=== PATIENT | female | born 1950 | race African-American/Black ===

== ENCOUNTER 2019-07-04 11:39 | Outpatient (CLI) | payer MEDICARE ==
--- NOTE | 2019-07-04 12:00 | RAD ---
TWO VIEWS RIGHT HIP: HISTORY: Pain. COMPARISON: None. FINDINGS: Severe loss of joint space height. There is sclerosis and subchondral cyst formation. The contour of the femoral head is slightly irregular along the superior lateral aspect, best demonstrated on the frogleg lateral view. Findings are presumed to be degenerative change. IF there is concern for fractu re or avascular necrosis, consider MRI. IMPRESSION: Degenerative changes and findings as detailed above. Transcribed Date/Time: 07/04/2019 12:06 PM
--- NOTE | 2019-07-04 12:00 | RAD ---
XR Knee Rt 4 View STANDARD HISTORY: Right knee pain FINDINGS: Marked degenerative changes are present. No fracture or dislocation is identified.
== END 2019-07-04 11:40 | disposition home or self-care (01) ==
LOC: BICRAD 11:39
PROVIDERS: ATTEND Family Medicine
DX: M25.561 Pain in right knee (principal); M25.551 Pain in right hip; M16.11 Unilateral primary osteoarthritis, right hip
CPT/HCPCS: 36415; 80053; 80061; 81001; 85025

== ENCOUNTER 2022-04-20 12:13 | Inpatient (IN) | payer MEDICAID, MEDICARE, OTHER ==
[~2022-04-20 12:13] MED LIST: Iopamidol-370 76% 500 ML 1 ML ONE
[2022-04-20 13:33] LABS: Bilirubin 1+ (Negative); Blood, Urine Negative (Negative); Clarity Clear (Clear); Glucose, Urine (Dipstick) Normal (Negative); Ketone, Urine Negative (Negative); Leukocyte 25 Leu/uL (Negative); Nitrite Negative (Negative); Protein, Urine (Dipstick) 70 mg/dL (Neg-Trace); Specific Gravity, Urine 1.021 (1.002-1.036); Squamous Epithelial 0-3 HPF (0-3); Urobilinogen 12 mg/dL (Less than 2)
[2022-04-20 13:41] LABS: Hemoglobin 11.5 g/dL (12.0-16.0); Mean Corpuscular HGB CONC 29.5 g/dL (32.0-36.0); Mean Platelet Volume 7.3 fL (7.4-10.4); Platelet Count 257 thou/uL (130-400); Red Blood Cell (RBC) Count 4.41 mill/uL (4.20-5.40); White Blood Cell (WBC) Count 4.3 thou/uL (4.8-10.8)
[2022-04-20 13:45] LABS: ALT (SGPT) 39 U/L (8-55); AST (SGOT) 49 U/L (5-34); Albumin 3.6 g/dL (3.4-4.8); Alkaline Phosphatase 179 U/L (40-110); Anion Gap 17 mmol/L (10-20); BUN (Urea Nitrogen) 34 mg/dL (9.8-20.1); Bilirubin, Total 6.3 mg/dL (0.2-1.2); Calc. Creatinine Clearance 0 mL/min (70-130); Calcium 9.5 mg/dL (7.8-10.44); Carbon Dioxide 25 mmol/L (23-31); Chloride 97 mmol/L (98-107); Estimated GFR 46; Globulin 4.2 g/dL (2.4-3.5); Glucose 105 mg/dL (83-110); Lipase 13 U/L (8-78); Magnesium 1.9 mg/dL (1.6-2.6); Protein, Total 7.8 g/dL (5.8-8.1); Sodium 135 mmol/L (136-145)
[2022-04-20 13:48] LABS: Bacteria/HPF 1+ HPF (None Seen); RBC/HPF 0-3 HPF (0-3)
[2022-04-20] MEDS ORDERED: Morphine 4 MG/ML VIAL ONE (13:50)
[2022-04-20] MEDS ORDERED: Furosemide 40 MG/4 ML VIAL ONE (13:51)
[2022-04-20] MEDS ORDERED: Ondansetron PF 4 MG/2 ML Vial ONE (13:51)
[2022-04-20 13:54] LABS: Anisocytosis SLIGHT = 6-15 cells (100X) (0-5/hpf); Eosinophils 5 % (0-10); Hypochromia SLIGHT = 6-15 cells (100X) (0-5/hpf); Lymphocytes 23 % (21-51); MDiff Complete? YES; Monocytes 11 % (0-10); Neutrophil 60 % (42-75); Ovalocytes SLIGHT = 2-5 cells (100X) (0-1/hpf); Platelet Morphology Comment Appears Adequate; Polychromasia SLIGHT = 2-3 cells (100X) (0-2/hpf); Reactive Lymphocytes 1 % (0-10)
[2022-04-20] MEDS ORDERED: Magnesium 2 GM/50 ML BAG (IN WATER) ONE (13:55)
[2022-04-20] MEDS ORDERED: Meropenem 1 GM in Sodium Chloride 0.9% 100 ML IVPB SCH (17:15)
[2022-04-20] MEDS ORDERED: Morphine 4 MG/ML VIAL SLOW IVP PRN (17:29)
[2022-04-20] MEDS ORDERED: Ondansetron PF 4 MG/2 ML Vial IVP PRN (17:41)
[2022-04-20] MEDS ORDERED: Ondansetron ODT 4 MG TAB PO PRN (17:41)
[2022-04-20] MEDS: metroNIDAZOLE 500 MG in Premix Bag 1 BAG IVPB SCH (21:03)
[2022-04-21 04:49] LABS: ALT (SGPT) 36 U/L (8-55); AST (SGOT) 39 U/L (5-34); Albumin 3.2 g/dL (3.4-4.8); Alkaline Phosphatase 151 U/L (40-110); Anion Gap 14 mmol/L (10-20); BUN (Urea Nitrogen) 34 mg/dL (9.8-20.1); Bilirubin, Total 6.1 mg/dL (0.2-1.2); Calc. Creatinine Clearance 84 mL/min (70-130); Calcium 9.1 mg/dL (7.8-10.44); Carbon Dioxide 28 mmol/L (23-31); Chloride 97 mmol/L (98-107); Estimated GFR 52; Globulin 3.6 g/dL (2.4-3.5); Glucose 80 mg/dL (83-110); Potassium 3.1 mmol/L (3.5-5.1); Protein, Total 6.8 g/dL (5.8-8.1); Sodium 136 mmol/L (136-145)
[2022-04-21 05:06] LABS: Hemoglobin 10.2 g/dL (12.0-16.0); Mean Corpuscular HGB CONC 30.1 g/dL (32.0-36.0); Mean Corpuscular Hemoglobin 25.6 pg (27.0-31.0); Mean Corpuscular Volume 85.1 fl (78.0-98.0); Mean Platelet Volume 6.9 fL (7.4-10.4); Platelet Count 266 thou/uL (130-400); RBC Distribution Width 15.7 % (11.5-14.5); Red Blood Cell (RBC) Count 3.97 mill/uL (4.20-5.40); White Blood Cell (WBC) Count 4.3 thou/uL (4.8-10.8)
[2022-04-21 05:07] LABS: Anisocytosis SLIGHT = 6-15 cells (100X) (0-5/hpf); Band 2 % (5-11); Eosinophils 2 % (0-10); Hypochromia SLIGHT = 6-15 cells (100X) (0-5/hpf); Lymphocytes 33 % (21-51); MDiff Complete? YES; Monocytes 11 % (0-10); Neutrophil 52 % (42-75); Platelet Morphology Comment Appears Adequate; Polychromasia SLIGHT = 2-3 cells (100X) (0-2/hpf); Target Cells SLIGHT = 2-5 cells (100X) (0-1/hpf)
[2022-04-21] MEDS: Furosemide 20 MG/2 ML VIAL SLOW IVP SCH ×2 (06:29→13:35)
[2022-04-21] MEDS: metroNIDAZOLE 500 MG in Premix Bag 1 BAG IVPB SCH ×3 (06:29→20:13)
[2022-04-21] MEDS: cefTRIAXone\\ROCEPHIN 1 GM in Sodium Chloride 0.9% 100 ML IVPB SCH ×2 (06:36→18:11)
[2022-04-21] MEDS ORDERED: Spironolactone 25 MG TAB PO SCH (08:00)
[2022-04-21] MEDS: Carvedilol 3.125 MG TAB PO SCH ×2 (08:44→16:37)
[2022-04-21] MEDS: Enoxaparin Sodium 120 MG/0.8 ML SYRINGE SC SCH ×2 (08:44→20:12)
[2022-04-21] MEDS ORDERED: Communication Order-Pharmacy FS SCH ×2 (09:00)
[2022-04-22 04:30] LABS: Anion Gap 13 mmol/L (10-20); BUN (Urea Nitrogen) 36 mg/dL (9.8-20.1); Calc. Creatinine Clearance 91 mL/min (70-130); Calcium 9.1 mg/dL (7.8-10.44); Carbon Dioxide 29 mmol/L (23-31); Chloride 97 mmol/L (98-107); Estimated GFR 57; Glucose 87 mg/dL (83-110); Potassium 3.1 mmol/L (3.5-5.1); Sodium 136 mmol/L (136-145)
[2022-04-22 05:09] LABS: Band 1 % (5-11); Eosinophils 6 % (0-10); Hemoglobin 10.3 g/dL (12.0-16.0); Lymphocytes 40 % (21-51); MDiff Complete? YES; Mean Corpuscular HGB CONC 30.9 g/dL (32.0-36.0); Mean Corpuscular Hemoglobin 26.6 pg (27.0-31.0); Mean Corpuscular Volume 85.8 fl (78.0-98.0); Monocytes 14 % (0-10); Neutrophil 38 % (42-75); Platelet Count 260 thou/uL (130-400); RBC Distribution Width 15.5 % (11.5-14.5); Red Blood Cell (RBC) Count 3.89 mill/uL (4.20-5.40)
[2022-04-22] MEDS: metroNIDAZOLE 500 MG in Premix Bag 1 BAG IVPB SCH ×2 (06:27→14:30)
[2022-04-22] MEDS: Furosemide 20 MG/2 ML VIAL SLOW IVP SCH ×2 (06:27→14:30)
[2022-04-22] MEDS ORDERED: Lidocaine 1% PF 5 ML VIAL ONE (06:52)
[2022-04-22] MEDS ORDERED: Nitroglycerin 100MG/250ML BOT 250 ML ONE (06:52)
[2022-04-22] MEDS ORDERED: Heparin 10,000 UNITS/ 10 ML VIAL ONE (06:52)
[2022-04-22] MEDS ORDERED: Verapamil 5 MG/2 ML VIAL ONE (06:52)
[2022-04-22] MEDS ORDERED: Midazolam HCl 2 mg/2 ml Vial ONE (08:44)
[2022-04-22] MEDS ORDERED: Fentanyl 100 MCG/2 ML VIAL ONE (08:45)
[2022-04-22] MEDS: Spironolactone 25 MG TAB PO SCH (09:21)
[2022-04-22] MEDS: Carvedilol 6.25 MG TAB PO SCH ×2 (09:21→17:26)
[2022-04-22] MEDS ORDERED: Iopamidol 370 76% 100 ML VIAL ONE (14:34)
[2022-04-22] MEDS ORDERED: Iopamidol 370 76% 50 ML VIAL FS ONE (14:34)
[2022-04-22] MEDS: cefTRIAXone\\ROCEPHIN 1 GM in Sodium Chloride 0.9% 100 ML IVPB SCH (17:26)
[2022-04-23 04:34] LABS: Anion Gap 13 mmol/L (10-20); BUN (Urea Nitrogen) 31 mg/dL (9.8-20.1); Calc. Creatinine Clearance 96 mL/min (70-130); Calcium 9.1 mg/dL (7.8-10.44); Carbon Dioxide 31 mmol/L (23-31); Chloride 96 mmol/L (98-107); Estimated GFR 60; Glucose 118 mg/dL (83-110); Sodium 137 mmol/L (136-145)
[2022-04-23 04:53] LABS: Hemoglobin 10.9 g/dL (12.0-16.0); MDiff Complete? YES; Mean Corpuscular Hemoglobin 26.3 pg (27.0-31.0); Mean Corpuscular Volume 87.5 fl (78.0-98.0); Mean Platelet Volume 6.9 fL (7.4-10.4); Platelet Count 290 thou/uL (130-400); RBC Distribution Width 15.5 % (11.5-14.5); Red Blood Cell (RBC) Count 4.13 mill/uL (4.20-5.40); White Blood Cell (WBC) Count 3.7 thou/uL (4.8-10.8)
[2022-04-23 04:54] LABS: Anisocytosis SLIGHT = 6-15 cells (100X) (0-5/hpf); Band 1 % (5-11); Eosinophils 2 % (0-10); Lymphocytes 30 % (21-51); Monocytes 18 % (0-10); Neutrophil 49 % (42-75)
[2022-04-23] MEDS: Furosemide 20 MG/2 ML VIAL SLOW IVP SCH ×2 (05:40→14:00)
[2022-04-23] MEDS: Carvedilol 6.25 MG TAB PO SCH ×2 (08:29→16:36)
[2022-04-23] MEDS: Apixaban 5 MG TAB PO SCH ×2 (08:29→20:43)
[2022-04-23] MEDS: Spironolactone 25 MG TAB PO SCH (08:30)
[2022-04-23] MEDS ORDERED: Potassium Chloride 20 MEQ TAB PO SCH (16:00)
[2022-04-23] MEDS: Sacubitril 49 MG/Valsartan 51 MG TABLET PO SCH (20:43)
[2022-04-24 04:58] LABS: ALT (SGPT) 36 U/L (8-55); AST (SGOT) 50 U/L (5-34); Albumin 3.1 g/dL (3.4-4.8); Alkaline Phosphatase 152 U/L (40-110); Anion Gap 14 mmol/L (10-20); BUN (Urea Nitrogen) 21 mg/dL (9.8-20.1); Bilirubin, Direct 3.7 mg/dL (0.1-0.3); Bilirubin, Total 5.6 mg/dL (0.2-1.2); Calc. Creatinine Clearance 114 mL/min (70-130); Carbon Dioxide 33 mmol/L (23-31); Chloride 95 mmol/L (98-107); Estimated GFR 74; Glucose 97 mg/dL (83-110); Magnesium 1.5 mg/dL (1.6-2.6); Potassium 3.5 mmol/L (3.5-5.1); Sodium 138 mmol/L (136-145)
[2022-04-24 05:06] LABS: Eosinophils 6 % (0-10); Hemoglobin 10.6 g/dL (12.0-16.0); Lymphocytes 42 % (21-51); MDiff Complete? YES; Mean Corpuscular HGB CONC 29.5 g/dL (32.0-36.0); Mean Corpuscular Hemoglobin 25.9 pg (27.0-31.0); Mean Corpuscular Volume 87.5 fl (78.0-98.0); Mean Platelet Volume 6.8 fL (7.4-10.4); Monocytes 22 % (0-10); Neutrophil 30 % (42-75); Platelet Count 311 thou/uL (130-400); RBC Distribution Width 15.7 % (11.5-14.5); Red Blood Cell (RBC) Count 4.12 mill/uL (4.20-5.40); White Blood Cell (WBC) Count 3.6 thou/uL (4.8-10.8)
[2022-04-24] MEDS: Furosemide 20 MG/2 ML VIAL SLOW IVP SCH (06:22)
[2022-04-24 07:36] VITALS: TEMP 97.5
[2022-04-24] MEDS ORDERED: Magnesium 2 GM/50 ML(in water) 2 GM in Premix Bag 1 BAG IVPB SCH (08:30)
[2022-04-24] MEDS: Apixaban 5 MG TAB PO SCH (08:37)
[2022-04-24] MEDS: Spironolactone 25 MG TAB PO SCH (08:37)
[2022-04-24] MEDS: Carvedilol 6.25 MG TAB PO SCH (08:37)
[2022-04-24] MEDS: Sacubitril 49 MG/Valsartan 51 MG TABLET PO SCH (08:38)
[2022-04-24 10:40] VITALS: BP 114/70
== END 2022-04-24 10:45 | disposition home or self-care (01) | DRG 286 ==
LOC: ERS 12:13 → 2NO 16:46
PROVIDERS: ADMIT Internal Medicine; ATTEND Hospitalist
PROC: 4A023N7 Measurement of Cardiac Sampling and Pressure, Left Heart, Percutaneous Approach (ICD-10-PCS; principal; 2022-04-22)
PROC: B2111ZZ Fluoroscopy of Multiple Coronary Arteries using Low Osmolar Contrast (ICD-10-PCS; 2022-04-22)
DX: I11.0 Hypertensive heart disease with heart failure (principal); I50.23 Acute on chronic systolic (congestive) heart failure; K80.10 Calculus of gallbladder with chronic cholecystitis without obstruction; N17.9 Acute kidney failure, unspecified; N39.0 Urinary tract infection, site not specified; I48.19 Other persistent atrial fibrillation; D64.9 Anemia, unspecified; I42.8 Other cardiomyopathies; E78.5 Hyperlipidemia, unspecified; Z96.652 Presence of left artificial knee joint; E80.6 Other disorders of bilirubin metabolism; K76.1 Chronic passive congestion of liver; I08.1 Rheumatic disorders of both mitral and tricuspid valves; E66.01 Morbid (severe) obesity due to excess calories; E87.6 Hypokalemia; Z20.822 Contact with and (suspected) exposure to COVID-19; Z79.82 Long term (current) use of aspirin; Z90.49 Acquired absence of other specified parts of digestive tract; Z79.01 Long term (current) use of anticoagulants; Z90.710 Acquired absence of both cervix and uterus; Z88.0 Allergy status to penicillin; Z98.890 Other specified postprocedural states; Z79.899 Other long term (current) drug therapy
CPT/HCPCS: 36415; 71045; 74177; 74181; 76705; 80048; 80053; 80076; 81003; 81015; 82248; 83690; 83735; 83880; 84443; 84484; 85025; 93005; 93306; 93458; 99152; C1769; C1894; J0696; J1644; J1650; J1940; J2185; J2250; J2270; J2405; J3010; J3475; J3490; Q9967; U0003; U0005

== ENCOUNTER 2023-04-04 10:46 | Inpatient (IN) | payer MEDICARE, MEDICAID ==
[~2023-04-04 10:46] MED LIST changes: -Iopamidol-370 76% 500 ML 1 ML ONE; +Iopamidol-370 76% 500 ML MDV (1 ML CHARGE) ONE
[2023-04-04 12:17] LABS: #Neutrophils 12.2 thou/uL (1.40-6.50); %Basophils 0.1 % (0.0-1.0); %Eosinophils 0.2 % (0.0-10.0); %Lymphocytes 4.7 % (21.0-51.0); %Neutrophils 87.4 % (42.0-75.0); Hematocrit 19.8 % (36.0-47.0); Hemoglobin 5.3 g/dL (12.0-16.0); Mean Corpuscular HGB CONC 26.8 g/dL (32.0-36.0); Mean Corpuscular Hemoglobin 19.6 pg (27.0-31.0); Mean Corpuscular Volume 73.3 fl (78.0-98.0); Mean Platelet Volume 9.2 fL (7.4-10.4); Platelet Count 175 10x3/uL (130-400); RBC Distribution Width 19.6 % (11.5-14.5); White Blood Cell (WBC) Count 13.9 10x3/uL (4.8-10.8)
[2023-04-04 12:33] LABS: ALT (SGPT) 15 U/L (8-55); AST (SGOT) 17 U/L (5-34); Albumin 3.5 g/dL (3.4-4.8); Alkaline Phosphatase 138 U/L (40-110); Anion Gap 12 mmol/L (10-20); BUN (Urea Nitrogen) 31 mg/dL (9.8-20.1); Bilirubin, Total 2.1 mg/dL (0.2-1.2); CK (CPK) 26 U/L (29-168); Calc. Creatinine Clearance 0 mL/min (70-130); Calcium 8.7 mg/dL (7.8-10.44); Carbon Dioxide 23 mmol/L (23-31); Chloride 109 mmol/L (98-107); Estimated GFR 64; Glucose 124 mg/dL (83-110); Magnesium 2.3 mg/dL (1.6-2.6); Potassium 3.9 mmol/L (3.5-5.1); Protein, Total 6.5 g/dL (5.8-8.1); Sodium 140 mmol/L (136-145)
[2023-04-04 12:36] LABS: Troponin I Less than 0.010 ng/mL (< 0.028)
[2023-04-04 13:03] LABS: Bilirubin Small (Negative); Blood, Urine Negative (Negative); Glucose, Urine (Dipstick) 100 mg/dL (Negative); Ketone, Urine Negative (Negative); Leukocyte Trace (Negative); Nitrite Negative (Negative); Protein, Urine (Dipstick) 30 mg/dL (Neg-Trace); pH, Urine 5.5 (5.0-9.0)
[2023-04-04 13:12] LABS: Clarity Hazy (Clear)
[2023-04-04 13:13] LABS: Bacteria/HPF 2+ HPF (None Seen); CAUTI Indications for Culture Alt mental st,lethar; RBC/HPF 0-3 HPF (0-3)
[2023-04-04 13:14] LABS: Urine Culture Reflex No No
[2023-04-04] MEDS ORDERED: Furosemide 40 MG/4 ML VIAL ONE (13:57)
[2023-04-04] MEDS ORDERED: Cefepime 2 GM VIAL ONE (14:18)
[2023-04-04] MEDS ORDERED: Vancomycin (BATCH) 2 GM in Premix 1 BAG IVPB SCH (16:00)
[2023-04-04] MEDS ORDERED: Ondansetron ODT 4 MG TAB PO PRN (16:19)
[2023-04-04] MEDS ORDERED: Ondansetron PF 4 MG/2 ML Vial IVP PRN (16:19)
[2023-04-04] MEDS ORDERED: Pantoprazole 40 MG VIAL IVP SCH (16:30)
[2023-04-04] MEDS ORDERED: [UNRECOGNIZED DRUG - OTHER] IVPB PRN (16:34)
[2023-04-04] MEDS ORDERED: Pantoprazole 40 MG VIAL ONE (18:10)
[2023-04-04] MEDS ORDERED: traMADol HCl 50 MG TAB ONE (18:10)
[2023-04-04] MEDS: traMADol HCl 50 MG TAB PO PRN (18:15)
[2023-04-04] MEDS ORDERED: Furosemide 20 MG/2 ML VIAL SLOW IVP SCH (19:00)
[2023-04-04] MEDS ORDERED: Sacubitril 49 MG/Valsartan 51 MG TABLET PO SCH (21:00)
[2023-04-04] MEDS ORDERED: Acetaminophen 325 MG TAB PO PRN (21:15)
[2023-04-04] MEDS: Carvedilol 6.25 MG TAB PO SCH (21:57)
[2023-04-04] MEDS: Pantoprazole 40 MG VIAL IVP SCH (21:58)
[2023-04-05 00:19] LABS: Hematocrit 19.8 % (36.0-47.0)
[2023-04-05 00:27] LABS: Hemoglobin 5.1 g/dL (12.0-16.0)
[2023-04-05] MEDS: traMADol HCl 50 MG TAB PO PRN ×3 (02:48→22:39)
[2023-04-05 03:58] LABS: #Monocytes 1.2 thou/uL (0.11-0.59); #Neutrophils 9.1 thou/uL (1.40-6.50); %Basophils 0.1 % (0.0-1.0); %Eosinophils 0.2 % (0.0-10.0); %Monocytes 11.1 % (0.0-10.0); %Neutrophils 81.2 % (42.0-75.0); Hematocrit 18.4 % (36.0-47.0); Mean Corpuscular HGB CONC 27.7 g/dL (32.0-36.0); Mean Corpuscular Hemoglobin 20.3 pg (27.0-31.0); Mean Corpuscular Volume 73.3 fl (78.0-98.0); Mean Platelet Volume 8.9 fL (7.4-10.4); Platelet Count 145 10x3/uL (130-400); RBC Distribution Width 19.7 % (11.5-14.5); Red Blood Cell (RBC) Count 2.51 mill/uL (4.20-5.40); White Blood Cell (WBC) Count 11.2 10x3/uL (4.8-10.8)
[2023-04-05 04:12] LABS: Hemoglobin 5.1 g/dL (12.0-16.0)
[2023-04-05 04:17] LABS: ALT (SGPT) 13 U/L (8-55); AST (SGOT) 14 U/L (5-34); Albumin 3.1 g/dL (3.4-4.8); Alkaline Phosphatase 122 U/L (40-110); Anion Gap 12 mmol/L (10-20); BUN (Urea Nitrogen) 26 mg/dL (9.8-20.1); Calc. Creatinine Clearance 104 mL/min (70-130); Calcium 8.5 mg/dL (7.8-10.44); Carbon Dioxide 23 mmol/L (23-31); Chloride 109 mmol/L (98-107); Estimated GFR 71; Globulin 3.1 g/dL (2.4-3.5); Glucose 125 mg/dL (83-110); Iron 11 ug/dL (50-170); Iron Binding Capacity, Total 418 mcg/dL (265-497); Potassium 3.4 mmol/L (3.5-5.1); Protein, Total 6.2 g/dL (5.8-8.1); Sodium 141 mmol/L (136-145)
[2023-04-05 06:29] LABS: Hemoglobin 5.6 g/dL (12.0-16.0)
[2023-04-05] MEDS: Pantoprazole 40 MG VIAL IVP SCH ×2 (09:08→21:22)
[2023-04-05] MEDS: Carvedilol 6.25 MG TAB PO SCH ×2 (09:09→17:14)
[2023-04-05] MEDS: Spironolactone 25 MG TAB PO SCH (09:16)
[2023-04-05 14:21] LABS: Hematocrit 24.6 % (36.0-47.0); Hemoglobin 6.9 g/dL (12.0-16.0); Mean Corpuscular Hemoglobin 21.4 pg (27.0-31.0); Mean Platelet Volume 9.2 fL (7.4-10.4); Platelet Count 147 10x3/uL (130-400); RBC Distribution Width 19.7 % (11.5-14.5); Red Blood Cell (RBC) Count 3.22 mill/uL (4.20-5.40); White Blood Cell (WBC) Count 10.4 10x3/uL (4.8-10.8)
[2023-04-05] MEDS: Vancomycin (BATCH) 2 GM in Premix 1 BAG IVPB SCH (14:22)
[2023-04-05 14:23] LABS: Delete Auto Diff?? YES; Manual Diff?? YES; Mean Corpuscular Volume 76.4 fl (78.0-98.0)
[2023-04-05 14:52] LABS: Anisocytosis SLIGHT = 6-15 cells HPF (0-5); Band 3 % (5-11); Burr Cells SLIGHT = 2-5 cells HPF (0-1); CellaVision Operator ID LAB.MJL; Elliptocytes SLIGHT = 2-5 cells HPF (0-1); Eosinophils 2 % (0-10); Hypochromia SLIGHT = 6-15 cells HPF (0-5); Lymphocytes 6 % (21-51); Monocytes 5 % (0-10); Neutrophil 84 % (42-75); Nucleated RBC (Manual Ct) 9 % (0); Ovalocytes SLIGHT = 2-5 cells HPF (0-1); Platelet Adequacy Comment Platelets Normal; Poikilocytosis MODERATE=16-30 cells HPF (0-5); Polychromasia MODERATE = 3-4 cells HPF (0-2); Schistocytes SLIGHT = 2-5 cells HPF (0-1); Spherocytes SLIGHT = 1-5 cells HPF (None Seen); Target Cells SLIGHT = 2-5 cells HPF (0-1); Tear Drops SLIGHT = 2-5 cells HPF (0-1); Total Cell Count 102
[2023-04-05] MEDS ORDERED: GoLYTELY 4,000 ml Bottle PO SCH (17:00)
[2023-04-05] MEDS ORDERED: Furosemide 20 MG/2 ML VIAL SLOW IVP SCH (19:00)
[2023-04-06 04:27] LABS: #Eosinphils 0.2 thou/uL (0.0-0.7); #Monocytes 1.2 thou/uL (0.11-0.59); %Basophils 0.3 % (0.0-1.0); %Eosinophils 2.4 % (0.0-10.0); %Lymphocytes 10.6 % (21.0-51.0); %Monocytes 12.1 % (0.0-10.0); %Neutrophils 73.8 % (42.0-75.0); Hematocrit 28.5 % (36.0-47.0); Mean Corpuscular HGB CONC 28.1 g/dL (32.0-36.0); Mean Corpuscular Hemoglobin 23.1 pg (27.0-31.0); Platelet Count 141 10x3/uL (130-400); RBC Distribution Width 20.2 % (11.5-14.5); Red Blood Cell (RBC) Count 3.47 mill/uL (4.20-5.40); White Blood Cell (WBC) Count 9.6 10x3/uL (4.8-10.8)
[2023-04-06 04:48] LABS: Anion Gap 15 mmol/L (10-20); BUN (Urea Nitrogen) 18 mg/dL (9.8-20.1); Calc. Creatinine Clearance 134 mL/min (70-130); Calcium 8.5 mg/dL (7.8-10.44); Carbon Dioxide 22 mmol/L (23-31); Chloride 108 mmol/L (98-107); Estimated GFR 92; Glucose 97 mg/dL (83-110); Potassium 3.5 mmol/L (3.5-5.1); Sodium 141 mmol/L (136-145)
[2023-04-06 04:58] LABS: Mean Corpuscular Volume 82.1 fl (78.0-98.0)
[2023-04-06] MEDS ORDERED: PROPOFOL 200 MG/20 ML VIAL ONE (11:08)
[2023-04-06] MEDS ORDERED: Lidocaine 1% PF 5 ML VIAL ONE (11:08)
[2023-04-06] MEDS ORDERED: fentaNYL 50 mcg/mL 1 mL Vial ONE (11:53)
[2023-04-06] MEDS: Losartan 25 MG TAB PO SCH (14:07)
[2023-04-06] MEDS: Carvedilol 6.25 MG TAB PO SCH ×2 (14:08→17:19)
[2023-04-06] MEDS: Empagliflozin 10 MG TAB PO SCH (14:08)
[2023-04-06] MEDS: Pantoprazole 40 MG VIAL IVP SCH ×2 (14:11→19:50)
[2023-04-06] MEDS: Spironolactone 25 MG TAB PO SCH (14:11)
[2023-04-06] MEDS: Vancomycin (BATCH) 2 GM in Premix 1 BAG IVPB SCH (14:16)
[2023-04-06] MEDS ORDERED: Nitrofurantoin Monohyd/M-Cryst 100 MG CAP PO SCH (15:00)
[2023-04-06] MEDS: traMADol HCl 50 MG TAB PO PRN (19:49)
[2023-04-06] MEDS: Nitrofurantoin Monohyd/M-Cryst 100 MG CAP PO SCH (19:50)
[2023-04-07 04:32] LABS: Hematocrit 28.4 % (36.0-47.0); Hemoglobin 8.2 g/dL (12.0-16.0); Mean Corpuscular HGB CONC 28.9 g/dL (32.0-36.0); Mean Corpuscular Hemoglobin 22.7 pg (27.0-31.0); Mean Corpuscular Volume 78.5 fl (78.0-98.0); Mean Platelet Volume 9.3 fL (7.4-10.4); Platelet Count 135 10x3/uL (130-400); RBC Distribution Width 20.7 % (11.5-14.5); Red Blood Cell (RBC) Count 3.62 mill/uL (4.20-5.40); White Blood Cell (WBC) Count 7.2 10x3/uL (4.8-10.8)
[2023-04-07] MEDS: traMADol HCl 50 MG TAB PO PRN ×2 (04:32→18:49)
[2023-04-07 05:04] LABS: Anion Gap 14 mmol/L (10-20); BUN (Urea Nitrogen) 13 mg/dL (9.8-20.1); Calc. Creatinine Clearance 125 mL/min (70-130); Calcium 8.6 mg/dL (7.8-10.44); Carbon Dioxide 25 mmol/L (23-31); Chloride 105 mmol/L (98-107); Estimated GFR 88; Glucose 74 mg/dL (83-110); Potassium 3.1 mmol/L (3.5-5.1); Sodium 141 mmol/L (136-145)
[2023-04-07 05:12] LABS: Delete Auto Diff?? YES; Manual Diff?? YES
[2023-04-07 06:11] LABS: Burr Cells SLIGHT = 2-5 cells HPF (0-1); CellaVision Operator ID LAB.JMM; Elliptocytes SLIGHT = 2-5 cells HPF (0-1); Eosinophils 4 % (0-10); Hypochromia SLIGHT = 6-15 cells HPF (0-5); Lymphocytes 11 % (21-51); Macrocytosis SLIGHT = 6-15 cells HPF (0-5); Monocytes 10 % (0-10); Neutrophil 75 % (42-75); Nucleated RBC (Manual Ct) 1 % (0); Platelet Adequacy Comment Platelets Normal; Poikilocytosis SLIGHT = 6-15 cells HPF (0-5); Polychromasia SLIGHT = 2-3 cells HPF (0-2); Smudge Cells 17.8 %; Total Cell Count 101
[2023-04-07] MEDS: Spironolactone 25 MG TAB PO SCH (08:40)
[2023-04-07] MEDS: Losartan 25 MG TAB PO SCH (08:40)
[2023-04-07] MEDS: Nitrofurantoin Monohyd/M-Cryst 100 MG CAP PO SCH ×2 (08:40→22:20)
[2023-04-07] MEDS: Empagliflozin 10 MG TAB PO SCH (08:40)
[2023-04-07] MEDS: Pantoprazole 40 MG VIAL IVP SCH (08:40)
[2023-04-07] MEDS: Carvedilol 6.25 MG TAB PO SCH ×2 (08:40→17:03)
[2023-04-07] MEDS ORDERED: FLU VACC QS2023(65UP)/MF59C/PF 60 MCG/0.5 ML SYRINGE IM ONE (09:00)
[2023-04-07] MEDS: Iron, Sodium Ferric Gluconate 250 MG in Sodium Chloride 0.9% 250 ML 250 ML IVPB SCH (09:15)
[2023-04-07] MEDS ORDERED: Potassium Chloride 20 MEQ TAB PO SCH (10:30)
[2023-04-07] MEDS ORDERED: Nystatin Powder 15 GM BOT TOP PRN (10:49)
[2023-04-07 11:48] LABS: Vancomycin, Trough 12.6 ug/mL
[2023-04-07] MEDS: Vancomycin (BATCH) 2 GM in Premix 1 BAG IVPB SCH (12:38)
[2023-04-08] MEDS: traMADol HCl 50 MG TAB PO PRN ×3 (01:12→18:55)
[2023-04-08 05:07] LABS: #Eosinphils 0.3 thou/uL (0.0-0.7); #Monocytes 0.9 thou/uL (0.11-0.59); #Neutrophils 3.7 thou/uL (1.40-6.50); %Basophils 0.5 % (0.0-1.0); %Eosinophils 5.4 % (0.0-10.0); %Lymphocytes 12.9 % (21.0-51.0); %Neutrophils 63.5 % (42.0-75.0); Hematocrit 27.7 % (36.0-47.0); Hemoglobin 8.2 g/dL (12.0-16.0); Mean Corpuscular HGB CONC 29.6 g/dL (32.0-36.0); Mean Corpuscular Hemoglobin 23.4 pg (27.0-31.0); Mean Corpuscular Volume 78.9 fl (78.0-98.0); Mean Platelet Volume 9.3 fL (7.4-10.4); Platelet Count 125 10x3/uL (130-400); RBC Distribution Width 21.2 % (11.5-14.5); Red Blood Cell (RBC) Count 3.51 mill/uL (4.20-5.40); White Blood Cell (WBC) Count 5.8 10x3/uL (4.8-10.8)
[2023-04-08 05:31] LABS: Anion Gap 13 mmol/L (10-20); BUN (Urea Nitrogen) 12 mg/dL (9.8-20.1); Calc. Creatinine Clearance 118 mL/min (70-130); Calcium 8.4 mg/dL (7.8-10.44); Carbon Dioxide 24 mmol/L (23-31); Chloride 104 mmol/L (98-107); Estimated GFR 82; Glucose 72 mg/dL (83-110); Magnesium 1.8 mg/dL (1.6-2.6); Potassium 3.2 mmol/L (3.5-5.1); Sodium 138 mmol/L (136-145)
[2023-04-08 06:09] LABS: Anisocytosis SLIGHT = 6-15 cells HPF (0-5); Burr Cells SLIGHT = 2-5 cells HPF (0-1); CellaVision Operator ID lab.abc; Hypochromia SLIGHT = 6-15 cells HPF (0-5); Microcytosis SLIGHT = 6-15 cells HPF (0-5); Platelet Adequacy Comment Platelets Decreased; Polychromasia MODERATE = 3-4 cells HPF (0-2); Tear Drops SLIGHT = 2-5 cells HPF (0-1)
[2023-04-08] MEDS ORDERED: Potassium Chloride 20 MEQ TAB PO SCH (08:30)
[2023-04-08] MEDS: Empagliflozin 10 MG TAB PO SCH (11:23)
[2023-04-08] MEDS: Nitrofurantoin Monohyd/M-Cryst 100 MG CAP PO SCH ×2 (11:23→19:55)
[2023-04-08] MEDS: Losartan 25 MG TAB PO SCH (11:24)
[2023-04-08] MEDS: Spironolactone 25 MG TAB PO SCH (11:24)
[2023-04-08] MEDS: Carvedilol 6.25 MG TAB PO SCH ×2 (11:24→16:11)
[2023-04-08] MEDS: Furosemide 40 MG TAB PO SCH (11:24)
[2023-04-08] MEDS: Iron, Sodium Ferric Gluconate 250 MG in Sodium Chloride 0.9% 250 ML 250 ML IVPB SCH (11:52)
[2023-04-08] MEDS: Vancomycin (BATCH) 2 GM in Premix 1 BAG IVPB SCH (13:00)
[2023-04-08] MEDS ORDERED: Apixaban 5 MG TAB PO SCH (16:30)
[2023-04-09] MEDS: traMADol HCl 50 MG TAB PO PRN ×2 (00:57→20:25)
[2023-04-09 04:33] LABS: #Eosinphils 0.2 thou/uL (0.0-0.7); #Monocytes 1.2 thou/uL (0.11-0.59); #Neutrophils 4.8 thou/uL (1.40-6.50); %Basophils 0.4 % (0.0-1.0); %Eosinophils 2.8 % (0.0-10.0); %Lymphocytes 12.7 % (21.0-51.0); %Monocytes 16.5 % (0.0-10.0); %Neutrophils 65.3 % (42.0-75.0); Hematocrit 27.5 % (36.0-47.0); Hemoglobin 8.1 g/dL (12.0-16.0); Mean Corpuscular HGB CONC 29.5 g/dL (32.0-36.0); Mean Corpuscular Hemoglobin 23.1 pg (27.0-31.0); Mean Corpuscular Volume 78.3 fl (78.0-98.0); Mean Platelet Volume 9.5 fL (7.4-10.4); Platelet Count 122 10x3/uL (130-400); RBC Distribution Width 22.7 % (11.5-14.5); Red Blood Cell (RBC) Count 3.51 mill/uL (4.20-5.40); White Blood Cell (WBC) Count 7.4 10x3/uL (4.8-10.8)
[2023-04-09 04:57] LABS: Anion Gap 16 mmol/L (10-20); BUN (Urea Nitrogen) 8 mg/dL (9.8-20.1); Calc. Creatinine Clearance 129 mL/min (70-130); Calcium 8.3 mg/dL (7.8-10.44); Carbon Dioxide 24 mmol/L (23-31); Chloride 102 mmol/L (98-107); Estimated GFR 91; Glucose 69 mg/dL (83-110); Sodium 139 mmol/L (136-145)
[2023-04-09] MEDS ORDERED: Potassium Bicarbonate/Cit Ac 20 MEQ TAB PO SCH (09:15)
[2023-04-09] MEDS: Carvedilol 6.25 MG TAB PO SCH ×2 (09:52→17:56)
[2023-04-09] MEDS: Apixaban 5 MG TAB PO SCH ×2 (09:53→20:25)
[2023-04-09] MEDS: Furosemide 40 MG TAB PO SCH (09:54)
[2023-04-09] MEDS: Losartan 25 MG TAB PO SCH ×2 (09:54→20:26)
[2023-04-09] MEDS: Empagliflozin 10 MG TAB PO SCH (10:00)
[2023-04-09] MEDS: Spironolactone 25 MG TAB PO SCH (10:00)
[2023-04-09] MEDS: Nitrofurantoin Monohyd/M-Cryst 100 MG CAP PO SCH ×2 (10:00→20:25)
[2023-04-09] MEDS: Iron, Sodium Ferric Gluconate 250 MG in Sodium Chloride 0.9% 250 ML 250 ML IVPB SCH (11:30)
[2023-04-09] MEDS: Vancomycin (BATCH) 2 GM in Premix 1 BAG IVPB SCH (12:08)
[2023-04-10] MEDS: traMADol HCl 50 MG TAB PO PRN ×2 (03:11→20:53)
[2023-04-10 04:57] LABS: #Eosinphils 0.2 thou/uL (0.0-0.7); #Monocytes 1.1 thou/uL (0.11-0.59); %Basophils 0.2 % (0.0-1.0); %Eosinophils 2.4 % (0.0-10.0); %Lymphocytes 11.5 % (21.0-51.0); %Monocytes 13.2 % (0.0-10.0); Hemoglobin 8.5 g/dL (12.0-16.0); Mean Corpuscular HGB CONC 29.3 g/dL (32.0-36.0); Mean Corpuscular Hemoglobin 23.4 pg (27.0-31.0); Mean Corpuscular Volume 79.7 fl (78.0-98.0); Mean Platelet Volume 9.2 fL (7.4-10.4); Platelet Count 137 10x3/uL (130-400); RBC Distribution Width 24.4 % (11.5-14.5); Red Blood Cell (RBC) Count 3.64 mill/uL (4.20-5.40); White Blood Cell (WBC) Count 8.4 10x3/uL (4.8-10.8)
[2023-04-10 05:20] LABS: Anion Gap 14 mmol/L (10-20); BUN (Urea Nitrogen) 7 mg/dL (9.8-20.1); Calc. Creatinine Clearance 132 mL/min (70-130); Calcium 8.5 mg/dL (7.8-10.44); Carbon Dioxide 27 mmol/L (23-31); Chloride 101 mmol/L (98-107); Estimated GFR 91; Glucose 83 mg/dL (83-110); Sodium 139 mmol/L (136-145)
[2023-04-10 06:01] LABS: CellaVision Operator ID lab.abc; Hypochromia SLIGHT = 6-15 cells HPF (0-5); Microcytosis SLIGHT = 6-15 cells HPF (0-5); Platelet Adequacy Comment Platelets Normal; Polychromasia SLIGHT = 2-3 cells HPF (0-2); Tear Drops SLIGHT = 2-5 cells HPF (0-1)
[2023-04-10] MEDS ORDERED: Potassium Bicarbonate/Cit Ac 20 MEQ TAB PO SCH (08:15)
[2023-04-10] MEDS: Iron, Sodium Ferric Gluconate 250 MG in Sodium Chloride 0.9% 250 ML 250 ML IVPB SCH (08:30)
[2023-04-10] MEDS: Carvedilol 6.25 MG TAB PO SCH ×2 (08:31→18:15)
[2023-04-10] MEDS: Nitrofurantoin Monohyd/M-Cryst 100 MG CAP PO SCH ×2 (08:32→20:53)
[2023-04-10] MEDS: Furosemide 40 MG TAB PO SCH (08:32)
[2023-04-10] MEDS: Empagliflozin 10 MG TAB PO SCH (08:32)
[2023-04-10] MEDS: Apixaban 5 MG TAB PO SCH ×2 (08:32→20:54)
[2023-04-10] MEDS: Spironolactone 25 MG TAB PO SCH (08:33)
[2023-04-10] MEDS: Losartan 25 MG TAB PO SCH ×2 (08:33→20:54)
[2023-04-10 15:09] VITALS: BMI 43.7
[2023-04-11 04:29] LABS: #Eosinphils 0.2 thou/uL (0.0-0.7); #Monocytes 1.2 thou/uL (0.11-0.59); #Neutrophils 5.4 thou/uL (1.40-6.50); %Basophils 0.4 % (0.0-1.0); %Eosinophils 2.9 % (0.0-10.0); %Monocytes 14.8 % (0.0-10.0); %Neutrophils 67.3 % (42.0-75.0); Hemoglobin 8.7 g/dL (12.0-16.0); Mean Corpuscular Hemoglobin 23.6 pg (27.0-31.0); Mean Corpuscular Volume 81.5 fl (78.0-98.0); Mean Platelet Volume 9.1 fL (7.4-10.4); Platelet Count 152 10x3/uL (130-400); RBC Distribution Width 26.3 % (11.5-14.5); Red Blood Cell (RBC) Count 3.68 mill/uL (4.20-5.40)
[2023-04-11 04:55] LABS: Anion Gap 13 mmol/L (10-20); BUN (Urea Nitrogen) 6 mg/dL (9.8-20.1); Calc. Creatinine Clearance 123 mL/min (70-130); Calcium 8.6 mg/dL (7.8-10.44); Carbon Dioxide 30 mmol/L (23-31); Chloride 100 mmol/L (98-107); Estimated GFR 86; Glucose 84 mg/dL (83-110); Potassium 3.2 mmol/L (3.5-5.1); Sodium 140 mmol/L (136-145)
[2023-04-11] MEDS: Carvedilol 6.25 MG TAB PO SCH ×2 (08:46→17:41)
[2023-04-11] MEDS: Nitrofurantoin Monohyd/M-Cryst 100 MG CAP PO SCH (08:47)
[2023-04-11] MEDS: Furosemide 40 MG TAB PO SCH (08:47)
[2023-04-11] MEDS: Spironolactone 25 MG TAB PO SCH (08:47)
[2023-04-11] MEDS: Apixaban 5 MG TAB PO SCH ×2 (08:48→20:59)
[2023-04-11] MEDS: Losartan 25 MG TAB PO SCH ×2 (08:49→20:59)
[2023-04-11] MEDS: Empagliflozin 10 MG TAB PO SCH (08:49)
[2023-04-11] MEDS: Potassium Bicarbonate/Cit Ac 20 MEQ TAB PO SCH (08:55)
[2023-04-11] MEDS: traMADol HCl 50 MG TAB PO PRN (17:39)
[2023-04-12] MEDS: traMADol HCl 50 MG TAB PO PRN ×2 (01:10→12:51)
[2023-04-12 04:39] LABS: #Eosinphils 0.2 thou/uL (0.0-0.7); #Monocytes 0.9 thou/uL (0.11-0.59); #Neutrophils 4.2 thou/uL (1.40-6.50); %Basophils 0.3 % (0.0-1.0); %Eosinophils 2.9 % (0.0-10.0); %Lymphocytes 16.4 % (21.0-51.0); %Monocytes 14.4 % (0.0-10.0); %Neutrophils 64.8 % (42.0-75.0); Hematocrit 30.7 % (36.0-47.0); Hemoglobin 8.9 g/dL (12.0-16.0); Mean Corpuscular Hemoglobin 23.9 pg (27.0-31.0); Mean Corpuscular Volume 82.3 fl (78.0-98.0); Mean Platelet Volume 9.3 fL (7.4-10.4); Platelet Count 214 10x3/uL (130-400); RBC Distribution Width 27.3 % (11.5-14.5); Red Blood Cell (RBC) Count 3.73 mill/uL (4.20-5.40); White Blood Cell (WBC) Count 6.5 10x3/uL (4.8-10.8)
[2023-04-12 05:09] LABS: Anion Gap 14 mmol/L (10-20); BUN (Urea Nitrogen) 9 mg/dL (9.8-20.1); Calc. Creatinine Clearance 118 mL/min (70-130); Calcium 8.6 mg/dL (7.8-10.44); Carbon Dioxide 29 mmol/L (23-31); Chloride 99 mmol/L (98-107); Estimated GFR 82; Glucose 83 mg/dL (83-110); Potassium 3.1 mmol/L (3.5-5.1); Sodium 139 mmol/L (136-145)
[2023-04-12 05:23] LABS: Anisocytosis MODERATE=16-30 cells HPF (0-5); CellaVision Operator ID lab.abc; Hypochromia SLIGHT = 6-15 cells HPF (0-5); Macrocytosis SLIGHT = 6-15 cells HPF (0-5); Microcytosis SLIGHT = 6-15 cells HPF (0-5); Platelet Adequacy Comment Platelets Normal; Polychromasia MODERATE = 3-4 cells HPF (0-2)
[2023-04-12] MEDS: Spironolactone 25 MG TAB PO SCH (09:18)
[2023-04-12] MEDS: Carvedilol 6.25 MG TAB PO SCH (09:18)
[2023-04-12] MEDS: Apixaban 5 MG TAB PO SCH (09:19)
[2023-04-12] MEDS: Furosemide 40 MG TAB PO SCH (09:19)
[2023-04-12] MEDS: Empagliflozin 10 MG TAB PO SCH (09:19)
[2023-04-12] MEDS: Potassium Bicarbonate/Cit Ac 20 MEQ TAB PO SCH (09:19)
[2023-04-12] MEDS: Losartan 25 MG TAB PO SCH (09:19)
[2023-04-12 11:53] VITALS: BP 142/77; TEMP 98.1
== END 2023-04-12 16:07 | DRG 378 ==
LOC: SUATTDRO 10:46 → ERS 10:46 → ERHOLD 16:19 → 2NO 20:12
PROVIDERS: ADMIT Internal Medicine; ATTEND Internal Medicine
PROC: 30233N1 Transfusion of Nonautologous Red Blood Cells into Peripheral Vein, Percutaneous Approach (ICD-10-PCS; 2023-04-04)
PROC: 0DB68ZX Excision of Stomach, Via Natural or Artificial Opening Endoscopic, Diagnostic (ICD-10-PCS; principal; 2023-04-06)
PROC: 0DJD8ZZ Inspection of Lower Intestinal Tract, Via Natural or Artificial Opening Endoscopic (ICD-10-PCS; 2023-04-06)
DX: K25.4 Chronic or unspecified gastric ulcer with hemorrhage (principal); I13.0 Hypertensive heart and chronic kidney disease with heart failure and stage 1 through stage 4 chronic kidney disease, or unspecified chronic kidney disease; L03.115 Cellulitis of right lower limb; Z68.41 Body mass index [BMI] 40.0-44.9, adult; I48.21 Permanent atrial fibrillation; I50.32 Chronic diastolic (congestive) heart failure; K22.70 Barrett's esophagus without dysplasia; D50.9 Iron deficiency anemia, unspecified; N18.9 Chronic kidney disease, unspecified; E66.01 Morbid (severe) obesity due to excess calories; Z88.0 Allergy status to penicillin; Z79.899 Other long term (current) drug therapy; Z79.01 Long term (current) use of anticoagulants; E78.5 Hyperlipidemia, unspecified; Z90.710 Acquired absence of both cervix and uterus; Z98.890 Other specified postprocedural states; K64.4 Residual hemorrhoidal skin tags; G89.29 Other chronic pain; M25.551 Pain in right hip; M19.90 Unspecified osteoarthritis, unspecified site; I89.0 Lymphedema, not elsewhere classified; G47.33 Obstructive sleep apnea (adult) (pediatric); K64.8 Other hemorrhoids; E87.6 Hypokalemia; R53.81 Other malaise
CPT/HCPCS: 36415; 36416; 36430; 70450; 72125; 74177; 80048; 80053; 80202; 81001; 82274; 82550; 83540; 83550; 83605; 83735; 83880; 84484; 85025; 86850; 86900; 86901; 87040; 88305; 88342; 93005; 93306; 93970; 96374; 96375; C9113; J0692; J1940; J2704; J2916; J3010; J3370; J7050; P9016; Q9967

== ENCOUNTER 2023-04-24 09:35 | Emergency (ER) | payer MEDICARE | END 2023-04-24 12:48 | disposition home or self-care (01) | LOC: ERS 09:35 | DX: M25.551 Pain in right hip (principal); M16.11 Unilateral primary osteoarthritis, right hip; M17.12 Unilateral primary osteoarthritis, left knee; E78.5 Hyperlipidemia, unspecified; I48.91 Unspecified atrial fibrillation; I11.0 Hypertensive heart disease with heart failure; I50.9 Heart failure, unspecified; Z79.01 Long term (current) use of anticoagulants; Z79.899 Other long term (current) drug therapy ==

== ENCOUNTER 2023-05-06 12:20 | Inpatient (IN) | payer MEDICARE ==
[2023-05-06] MEDS ORDERED: Acetaminophen 325 MG TAB ONE (12:59)
[2023-05-06 13:17] LABS: #Eosinphils 0.1 thou/uL (0.0-0.7); #Monocytes 0.5 thou/uL (0.11-0.59); #Neutrophils 4.4 thou/uL (1.40-6.50); %Basophils 0.5 % (0.0-1.0); %Eosinophils 1.3 % (0.0-10.0); %Lymphocytes 16.9 % (21.0-51.0); %Monocytes 8.6 % (0.0-10.0); %Neutrophils 72.4 % (42.0-75.0); Hematocrit 45.1 % (36.0-47.0); Hemoglobin 13.6 g/dL (12.0-16.0); Mean Corpuscular HGB CONC 30.2 g/dL (32.0-36.0); Mean Corpuscular Volume 89.7 fl (78.0-98.0); Mean Platelet Volume 9.1 fL (7.4-10.4); Platelet Count 210 10x3/uL (130-400); RBC Distribution Width 30.2 % (11.5-14.5); Red Blood Cell (RBC) Count 5.03 mill/uL (4.20-5.40); White Blood Cell (WBC) Count 6.1 10x3/uL (4.8-10.8)
[2023-05-06 13:46] LABS: Troponin I 0.018 ng/mL (< 0.028)
[2023-05-06 13:47] LABS: ALT (SGPT) 61 U/L (8-55); AST (SGOT) 44 U/L (5-34); Albumin 3.7 g/dL (3.4-4.8); Alkaline Phosphatase 131 U/L (40-110); Anion Gap 18 mmol/L (10-20); BUN (Urea Nitrogen) 68 mg/dL (9.8-20.1); Bilirubin, Total 2.9 mg/dL (0.2-1.2); Calc. Creatinine Clearance 0 mL/min (70-130); Calcium 9.9 mg/dL (7.8-10.44); Carbon Dioxide 20 mmol/L (23-31); Chloride 99 mmol/L (98-107); Estimated GFR 17; Globulin 4.1 g/dL (2.4-3.5); Glucose 124 mg/dL (83-110); Potassium 5.1 mmol/L (3.5-5.1); Protein, Total 7.8 g/dL (5.8-8.1); Sodium 132 mmol/L (136-145)
[2023-05-06 13:51] LABS: Anisocytosis MODERATE=16-30 cells HPF (0-5); CellaVision Operator ID lab.dlt; Platelet Adequacy Comment Platelets Normal; Poikilocytosis SLIGHT = 6-15 cells HPF (0-5); Polychromasia SLIGHT = 2-3 cells HPF (0-2)
[2023-05-06 14:04] LABS: Bilirubin 1+ (Negative); Blood, Urine 1+ (Negative); CAUTI Indications for Culture Pelvic or flank pain; Clarity Turbid (Clear); Glucose, Urine (Dipstick) 30 mg/dL (Negative); Ketone, Urine Negative (Negative); Leukocyte Negative Leu/uL (Negative); Nitrite Negative (Negative); Protein, Urine (Dipstick) 20 mg/dL (Neg-Trace); Specific Gravity, Urine 1.024 (1.002-1.036); Squamous Epithelial 0-3 HPF (0-3)
[2023-05-06 14:08] LABS: Bacteria/HPF 1+ HPF (None Seen); Urine Culture Reflex No No
[2023-05-06] MEDS ORDERED: Pantoprazole 40 MG VIAL ONE (15:21)
[2023-05-06] MEDS ORDERED: Bisacodyl 10 MG SUPP PR PRN (16:11)
[2023-05-06] MEDS ORDERED: Senokot S 8.6-50 MG TAB PO PRN (16:11)
[2023-05-06] MEDS ORDERED: Ondansetron ODT 4 MG TAB PO PRN (16:11)
[2023-05-06] MEDS ORDERED: Ondansetron PF 4 MG/2 ML Vial IVP PRN (16:11)
[2023-05-06] MEDS ORDERED: Sodium Chloride 0.9% 1,000 ML IV SCH (16:15)
[2023-05-06 17:33] VITALS: BMI 35.5
[2023-05-06] MEDS: Carvedilol 6.25 MG TAB PO SCH (17:37)
[2023-05-06] MEDS: Acetaminophen 325 MG TAB PO PRN (21:35)
[2023-05-06] MEDS: Apixaban 5 MG TAB PO SCH (21:36)
[2023-05-07 06:04] LABS: #Eosinphils 0.1 thou/uL (0.0-0.7); #Monocytes 0.6 thou/uL (0.11-0.59); #Neutrophils 3.1 thou/uL (1.40-6.50); %Basophils 0.8 % (0.0-1.0); %Eosinophils 2.5 % (0.0-10.0); %Lymphocytes 17.6 % (21.0-51.0); %Monocytes 13.2 % (0.0-10.0); %Neutrophils 65.7 % (42.0-75.0); Hematocrit 40.7 % (36.0-47.0); Hemoglobin 12.5 g/dL (12.0-16.0); Mean Corpuscular HGB CONC 30.7 g/dL (32.0-36.0); Mean Corpuscular Volume 87.9 fl (78.0-98.0); Mean Platelet Volume 9.6 fL (7.4-10.4); Platelet Count 171 10x3/uL (130-400); RBC Distribution Width 29.5 % (11.5-14.5); Red Blood Cell (RBC) Count 4.63 mill/uL (4.20-5.40); White Blood Cell (WBC) Count 4.8 10x3/uL (4.8-10.8)
[2023-05-07 06:29] LABS: ALT (SGPT) 50 U/L (8-55); AST (SGOT) 36 U/L (5-34); Albumin 3.3 g/dL (3.4-4.8); Alkaline Phosphatase 115 U/L (40-110); Anion Gap 16 mmol/L (10-20); BUN (Urea Nitrogen) 56 mg/dL (9.8-20.1); Bilirubin, Total 2.7 mg/dL (0.2-1.2); Calc. Creatinine Clearance 45 mL/min (70-130); Calcium 8.7 mg/dL (7.8-10.44); Carbon Dioxide 21 mmol/L (23-31); Chloride 104 mmol/L (98-107); Estimated GFR 32; Globulin 3.3 g/dL (2.4-3.5); Glucose 74 mg/dL (83-110); Magnesium 2.4 mg/dL (1.6-2.6); Protein, Total 6.6 g/dL (5.8-8.1); Sodium 137 mmol/L (136-145)
[2023-05-07] MEDS: Apixaban 5 MG TAB PO SCH ×2 (10:28→21:43)
[2023-05-07] MEDS: Acetaminophen 325 MG TAB PO PRN ×2 (10:28→19:14)
[2023-05-07] MEDS: Carvedilol 6.25 MG TAB PO SCH ×2 (10:31→17:16)
[2023-05-08] MEDS: Acetaminophen 325 MG TAB PO PRN ×3 (02:58→21:09)
[2023-05-08 08:38] LABS: Anion Gap 12 mmol/L (10-20); BUN (Urea Nitrogen) 31 mg/dL (9.8-20.1); Calc. Creatinine Clearance 90 mL/min (70-130); Calcium 8.8 mg/dL (7.8-10.44); Carbon Dioxide 22 mmol/L (23-31); Chloride 109 mmol/L (98-107); Estimated GFR 73; Glucose 93 mg/dL (83-110); Potassium 3.7 mmol/L (3.5-5.1); Sodium 139 mmol/L (136-145)
[2023-05-08] MEDS: Apixaban 5 MG TAB PO SCH ×2 (09:07→21:09)
[2023-05-08] MEDS: Carvedilol 6.25 MG TAB PO SCH ×2 (09:07→17:39)
[2023-05-09] MEDS: Acetaminophen 325 MG TAB PO PRN ×2 (03:18→17:26)
[2023-05-09 06:37] LABS: Anion Gap 11 mmol/L (10-20); BUN (Urea Nitrogen) 21 mg/dL (9.8-20.1); Calc. Creatinine Clearance 97 mL/min (70-130); Calcium 8.7 mg/dL (7.8-10.44); Carbon Dioxide 23 mmol/L (23-31); Chloride 108 mmol/L (98-107); Estimated GFR 80; Glucose 102 mg/dL (83-110); Potassium 3.7 mmol/L (3.5-5.1); Sodium 138 mmol/L (136-145)
[2023-05-09] MEDS: Apixaban 5 MG TAB PO SCH ×2 (08:34→19:53)
[2023-05-09] MEDS: Carvedilol 6.25 MG TAB PO SCH ×2 (09:46→17:30)
[2023-05-09] MEDS ORDERED: FLU VACC QS2023(65UP)/MF59C/PF 60 MCG/0.5 ML SYRINGE IM ONE (18:45)
[2023-05-09] MEDS: Benzocaine/Menthol 1 LOZ LOZ PO PRN (23:51)
[2023-05-10] MEDS: Apixaban 5 MG TAB PO SCH ×2 (08:51→19:49)
[2023-05-10] MEDS: Carvedilol 6.25 MG TAB PO SCH ×2 (11:13→17:18)
[2023-05-10] MEDS: Acetaminophen 325 MG TAB PO PRN ×2 (11:21→19:56)
[2023-05-10] MEDS: Benzocaine/Menthol 1 LOZ LOZ PO PRN (20:29)
[2023-05-11] MEDS: Acetaminophen 325 MG TAB PO PRN ×3 (02:03→18:57)
[2023-05-11] MEDS: Benzocaine/Menthol 1 LOZ LOZ PO PRN ×2 (03:44→21:09)
[2023-05-11] MEDS: Carvedilol 6.25 MG TAB PO SCH ×2 (08:28→17:38)
[2023-05-11] MEDS: Apixaban 5 MG TAB PO SCH ×2 (08:31→19:58)
[2023-05-12] MEDS: Acetaminophen 325 MG TAB PO PRN ×2 (06:34→14:07)
[2023-05-12] MEDS: Carvedilol 6.25 MG TAB PO SCH (08:21)
[2023-05-12] MEDS: Apixaban 5 MG TAB PO SCH (08:21)
[2023-05-12 16:37] VITALS: BP 106/65; TEMP 98.2
== END 2023-05-12 16:18 | disposition home health service (06) | DRG 683 ==
LOC: ERS 12:20 → T4-A 17:10
PROVIDERS: ADMIT Family Medicine; ATTEND Internal Medicine
DX: N17.9 Acute kidney failure, unspecified (principal); I13.0 Hypertensive heart and chronic kidney disease with heart failure and stage 1 through stage 4 chronic kidney disease, or unspecified chronic kidney disease; I48.21 Permanent atrial fibrillation; I50.22 Chronic systolic (congestive) heart failure; E66.01 Morbid (severe) obesity due to excess calories; Z96.652 Presence of left artificial knee joint; E86.0 Dehydration; Z88.0 Allergy status to penicillin; Z88.1 Allergy status to other antibiotic agents; Z79.899 Other long term (current) drug therapy; Z79.01 Long term (current) use of anticoagulants; Z90.49 Acquired absence of other specified parts of digestive tract; Z90.710 Acquired absence of both cervix and uterus; Z68.35 Body mass index [BMI] 35.0-35.9, adult
CPT/HCPCS: 36415; 71045; 76770; 80048; 80053; 81001; 83735; 83880; 84484; 85025; 90471; 90694; 93005; 96361; 96374; C9113; G0008; J7050

== ENCOUNTER 2023-05-14 04:34 | Inpatient (IN) | payer MEDICARE ==
[2023-05-14 05:16] LABS: #Eosinphils 0.3 thou/uL (0.0-0.7); #Monocytes 0.5 thou/uL (0.11-0.59); #Neutrophils 4.5 thou/uL (1.40-6.50); %Basophils 0.3 % (0.0-1.0); %Eosinophils 4.9 % (0.0-10.0); %Lymphocytes 15.4 % (21.0-51.0); %Monocytes 8.5 % (0.0-10.0); %Neutrophils 70.7 % (42.0-75.0); Hematocrit 38.3 % (36.0-47.0); Hemoglobin 11.7 g/dL (12.0-16.0); Mean Corpuscular HGB CONC 30.5 g/dL (32.0-36.0); Mean Corpuscular Hemoglobin 27.5 pg (27.0-31.0); Mean Corpuscular Volume 90.1 fl (78.0-98.0); Mean Platelet Volume 9.2 fL (7.4-10.4); Platelet Count 204 10x3/uL (130-400); RBC Distribution Width 29.6 % (11.5-14.5); Red Blood Cell (RBC) Count 4.25 mill/uL (4.20-5.40); White Blood Cell (WBC) Count 6.4 10x3/uL (4.8-10.8)
[2023-05-14] MEDS ORDERED: Pantoprazole 40 MG VIAL ONE ×2 (05:28→09:43)
[2023-05-14 05:29] LABS: INR-International Normal Ratio 1.5; Prothrombin Time 19.1 sec (12.0-14.7)
[2023-05-14 05:41] LABS: ALT (SGPT) 40 U/L (8-55); AST (SGOT) 30 U/L (5-34); Albumin 3.2 g/dL (3.4-4.8); Alkaline Phosphatase 134 U/L (40-110); Anion Gap 14 mmol/L (10-20); BUN (Urea Nitrogen) 48 mg/dL (9.8-20.1); Bilirubin, Total 2.2 mg/dL (0.2-1.2); Calc. Creatinine Clearance 0 mL/min (70-130); Calcium 9.4 mg/dL (7.8-10.44); Carbon Dioxide 26 mmol/L (23-31); Chloride 105 mmol/L (98-107); Estimated GFR 60; Globulin 3.6 g/dL (2.4-3.5); Glucose 115 mg/dL (83-110); Potassium 4.6 mmol/L (3.5-5.1); Protein, Total 6.8 g/dL (5.8-8.1); Sodium 140 mmol/L (136-145)
[2023-05-14 05:53] LABS: Anisocytosis MARKED = >30 cells HPF (0-5); Burr Cells SLIGHT = 2-5 cells HPF (0-1); CellaVision Operator ID lab.sh2; Hypochromia SLIGHT = 6-15 cells HPF (0-5); Macrocytosis MODERATE=16-30 cells HPF (0-5); Ovalocytes SLIGHT = 2-5 cells HPF (0-1); Platelet Adequacy Comment Platelets Normal; Poikilocytosis SLIGHT = 6-15 cells HPF (0-5); Polychromasia MODERATE = 3-4 cells HPF (0-2)
[2023-05-14] MEDS ORDERED: Morphine 4 MG/ML VIAL ONE (06:16)
[2023-05-14 08:30] LABS: Hemoglobin 11.3 g/dL (12.0-16.0)
[2023-05-14] MEDS ORDERED: Oseltamivir 75 MG CAP PO SCH ×2 (09:15→21:00)
[2023-05-14] MEDS: Sodium Chloride 0.9% 1,000 ML IV SCH ×2 (09:40→22:49)
[2023-05-14] MEDS: Pantoprazole 40 MG VIAL IVP SCH ×2 (10:14→20:18)
[2023-05-14 10:50] VITALS: BMI 36.8
[2023-05-14] MEDS ORDERED: Iopamidol-370 76% 500 ML MDV (1 ML CHARGE) ONE (11:32)
[2023-05-14] MEDS: Carvedilol 6.25 MG TAB PO SCH (16:32)
[2023-05-14] MEDS: traMADol HCl 50 MG TAB PO PRN ×2 (16:32→22:49)
[2023-05-14 16:40] LABS: Hemoglobin 11.3 g/dL (12.0-16.0)
[2023-05-14 20:06] LABS: Hemoglobin 10.4 g/dL (12.0-16.0)
[2023-05-15 05:42] LABS: Anion Gap 16 mmol/L (10-20); BUN (Urea Nitrogen) 33 mg/dL (9.8-20.1); Calc. Creatinine Clearance 107 mL/min (70-130); Calcium 8.7 mg/dL (7.8-10.44); Carbon Dioxide 18 mmol/L (23-31); Chloride 114 mmol/L (98-107); Estimated GFR 89; Glucose 87 mg/dL (83-110); Potassium 4.5 mmol/L (3.5-5.1); Sodium 143 mmol/L (136-145)
[2023-05-15] MEDS: Carvedilol 6.25 MG TAB PO SCH ×2 (08:27→16:29)
[2023-05-15] MEDS ORDERED: PROPOFOL 200 MG/20 ML VIAL ONE (09:31)
[2023-05-15] MEDS ORDERED: PROPOFOL 20 ML ONE (09:41)
[2023-05-15] MEDS ORDERED: Lidocaine 2% PF 5 ML VIAL ONE (09:41)
[2023-05-15] MEDS: Pantoprazole 40 MG VIAL IVP SCH ×2 (12:13→20:56)
[2023-05-15 12:23] LABS: Hematocrit 35.3 % (36.0-47.0); Hemoglobin 11.1 g/dL (12.0-16.0); Mean Corpuscular HGB CONC 31.4 g/dL (32.0-36.0); Mean Corpuscular Hemoglobin 28.4 pg (27.0-31.0); Mean Corpuscular Volume 90.3 fl (78.0-98.0); Mean Platelet Volume 9.8 fL (7.4-10.4); Platelet Count 176 10x3/uL (130-400); RBC Distribution Width 29.1 % (11.5-14.5); Red Blood Cell (RBC) Count 3.91 mill/uL (4.20-5.40); White Blood Cell (WBC) Count 8.4 10x3/uL (4.8-10.8)
[2023-05-15 12:34] LABS: Hematocrit 33.6 % (36.0-47.0); Hemoglobin 10.5 g/dL (12.0-16.0)
[2023-05-15] MEDS: Acetaminophen 325 MG TAB PO PRN ×2 (15:36→22:24)
[2023-05-15] MEDS: Sodium Chloride 0.9% 1,000 ML IV SCH (15:37)
[2023-05-15] MEDS: traMADol HCl 50 MG TAB PO PRN (18:33)
[2023-05-15 20:53] LABS: Hematocrit 30.7 % (36.0-47.0); Hemoglobin 9.3 g/dL (12.0-16.0)
[2023-05-16 05:06] LABS: Hematocrit 31.8 % (36.0-47.0); Mean Corpuscular HGB CONC 31.4 g/dL (32.0-36.0); Mean Corpuscular Hemoglobin 28.3 pg (27.0-31.0); Mean Corpuscular Volume 90.1 fl (78.0-98.0); Platelet Count 160 10x3/uL (130-400); RBC Distribution Width 28.8 % (11.5-14.5); Red Blood Cell (RBC) Count 3.53 mill/uL (4.20-5.40); White Blood Cell (WBC) Count 5.3 10x3/uL (4.8-10.8)
[2023-05-16] MEDS: traMADol HCl 50 MG TAB PO PRN ×3 (05:28→23:58)
[2023-05-16] MEDS: Sodium Chloride 0.9% 1,000 ML IV SCH (05:29)
[2023-05-16] MEDS: Carvedilol 6.25 MG TAB PO SCH ×2 (08:08→16:43)
[2023-05-16] MEDS: Pantoprazole 40 MG VIAL IVP SCH ×2 (08:09→21:16)
[2023-05-16] MEDS: Acetaminophen 325 MG TAB PO PRN ×2 (08:10→14:05)
[2023-05-16] MEDS ORDERED: Docusate 100 MG CAP PO PRN (11:48)
[2023-05-16] MEDS ORDERED: Polyethylene Glycol 3350 17 GM Packet PO PRN (11:48)
[2023-05-16] MEDS: Loratadine 10 MG TAB PO PRN (21:16)
[2023-05-17 04:40] LABS: Hematocrit 30.7 % (36.0-47.0); Hemoglobin 9.5 g/dL (12.0-16.0); Mean Corpuscular HGB CONC 30.9 g/dL (32.0-36.0); Mean Corpuscular Volume 90.6 fl (78.0-98.0); Mean Platelet Volume 8.9 fL (7.4-10.4); Platelet Count 176 10x3/uL (130-400); RBC Distribution Width 28.5 % (11.5-14.5); Red Blood Cell (RBC) Count 3.39 mill/uL (4.20-5.40); White Blood Cell (WBC) Count 4.7 10x3/uL (4.8-10.8)
[2023-05-17 05:02] LABS: Anion Gap 11 mmol/L (10-20); BUN (Urea Nitrogen) 11 mg/dL (9.8-20.1); Calc. Creatinine Clearance 126 mL/min (70-130); Calcium 8.4 mg/dL (7.8-10.44); Carbon Dioxide 23 mmol/L (23-31); Chloride 106 mmol/L (98-107); Estimated GFR 94; Glucose 76 mg/dL (83-110); Potassium 3.4 mmol/L (3.5-5.1); Sodium 137 mmol/L (136-145)
[2023-05-17] MEDS ORDERED: Potassium Chloride 20 MEQ TAB PO SCH (08:00)
[2023-05-17] MEDS: Multivitamin W/ Minerals 1 TAB PO SCH (08:23)
[2023-05-17] MEDS: Pantoprazole 40 MG VIAL IVP SCH ×2 (08:23→20:04)
[2023-05-17] MEDS: Carvedilol 6.25 MG TAB PO SCH ×2 (08:24→16:12)
[2023-05-17] MEDS ORDERED: Iron, Sodium Ferric Gluconate 250 MG in Sodium Chloride 0.9% 250 ML 250 ML IVPB SCH (12:00)
[2023-05-17] MEDS: traMADol HCl 50 MG TAB PO PRN (16:13)
[2023-05-17 18:33] LABS: Hematocrit 31.7 % (36.0-47.0); Hemoglobin 10.1 g/dL (12.0-16.0)
[2023-05-17] MEDS: Loratadine 10 MG TAB PO PRN (20:04)
[2023-05-18] MEDS: traMADol HCl 50 MG TAB PO PRN (00:49)
[2023-05-18 04:53] LABS: Hematocrit 29.6 % (36.0-47.0); Hemoglobin 9.2 g/dL (12.0-16.0); Mean Corpuscular HGB CONC 31.1 g/dL (32.0-36.0); Mean Corpuscular Hemoglobin 28.5 pg (27.0-31.0); Mean Corpuscular Volume 91.6 fl (78.0-98.0); Mean Platelet Volume 8.9 fL (7.4-10.4); Platelet Count 172 10x3/uL (130-400); RBC Distribution Width 28.6 % (11.5-14.5); Red Blood Cell (RBC) Count 3.23 mill/uL (4.20-5.40); White Blood Cell (WBC) Count 3.5 10x3/uL (4.8-10.8)
[2023-05-18 08:18] VITALS: TEMP 98.2
[2023-05-18] MEDS: Multivitamin W/ Minerals 1 TAB PO SCH (09:43)
[2023-05-18] MEDS: Pantoprazole 40 MG VIAL IVP SCH (09:43)
[2023-05-18] MEDS: Carvedilol 6.25 MG TAB PO SCH (09:43)
[2023-05-18 12:17] VITALS: BP 136/70
== END 2023-05-18 13:50 | disposition home health service (06) | DRG 378 ==
LOC: ERS 04:34 → SUATTDRO 04:34 → ERHOLD 07:27 → 2SW 14:44 → OBSVTOIN 05-16 08:08
PROVIDERS: ADMIT Internal Medicine; ATTEND Internal Medicine
PROC: 0DB78ZX Excision of Stomach, Pylorus, Via Natural or Artificial Opening Endoscopic, Diagnostic (ICD-10-PCS; principal; 2023-05-15)
DX: K25.4 Chronic or unspecified gastric ulcer with hemorrhage (principal); D62 Acute posthemorrhagic anemia; L03.115 Cellulitis of right lower limb; K55.21 Angiodysplasia of colon with hemorrhage; I11.0 Hypertensive heart disease with heart failure; I50.9 Heart failure, unspecified; E66.01 Morbid (severe) obesity due to excess calories; I89.0 Lymphedema, not elsewhere classified; R53.81 Other malaise; M19.90 Unspecified osteoarthritis, unspecified site; G89.29 Other chronic pain; I50.810 Right heart failure, unspecified; K55.20 Angiodysplasia of colon without hemorrhage; I48.0 Paroxysmal atrial fibrillation; M25.551 Pain in right hip; K64.8 Other hemorrhoids; R53.1 Weakness; K44.9 Diaphragmatic hernia without obstruction or gangrene; K31.9 Disease of stomach and duodenum, unspecified; Z79.899 Other long term (current) drug therapy; Z96.652 Presence of left artificial knee joint; Z88.0 Allergy status to penicillin; Z90.49 Acquired absence of other specified parts of digestive tract; Z90.710 Acquired absence of both cervix and uterus; Z98.890 Other specified postprocedural states; Z68.36 Body mass index [BMI] 36.0-36.9, adult
CPT/HCPCS: 36415; 36416; 74174; 80048; 80053; 85025; 85027; 85610; 85730; 86850; 86900; 86901; 88305; 93005; 96374; 96375; C9113; J2001; J2270; J2704; J2916; J7050; Q9967